=== PATIENT | male | born 1935 | race Caucasian/White ===

== ENCOUNTER 2020-05-10 08:33 | Inpatient (IN) | payer MEDICARE, OTHER ==
--- NOTE | 2020-05-10 10:11 | EDM.PDOC ---
ED HPI GENERAL MEDICAL PROBLEM - General Chief Complaint: Fever Stated Complaint: FEVER,WEAKNESS,STOMACHACHE Time Seen by Provider: 05/10/20 09:45 - History of Present Illness INITIAL COMMENTS - FREE TEXT/NARRATIVE: This is an 84-year-old male who presents with concerns of fever, fatigue, some muscle aches as well. His symptoms started approximately 5 days ago. He is primarily just been with fever and fatigue. No cough or shortness of breath. No abdominal pain. No diarrhea. He notes that he took a tick bite off of his left arm approximately 2 weeks ago, thought it was a normal wood tick, but did have some surrounding redness. He is visiting the area from [place]. He reports that he does not have any chronic medical problems besides for high blood pressure. He has no sick contacts and his and him have been relatively isolated. - Related Data Allergies Allergy/AdvReac Type Severity Reaction Status Date / Time No Known Allergies Allergy Verified 05/10/20 09:09 Home Meds: Home Meds Aspirin [Halfprin] 81 mg PO DAILY 05/10/20 [History] Finasteride [Proscar] 5 mg PO DAILY 05/10/20 [History] Losartan [Cozaar] 50 mg PO BID 05/10/20 [History] hydroCHLOROthiazide [Hydrochlorothiazide] 12.5 mg PO DAILY 05/10/20 [History] Past Medical History Cardiovascular History: Reports: Hypertension Respiratory History: Reports: None Gastrointestinal History: Reports: None Genitourinary History: Reports: BPH Musculoskeletal History: Reports: Fracture, Gout Neurological History: Reports: None Psychiatric History: Reports: None Endocrine/Metabolic History: Reports: None Hematologic History: Reports: None Immunologic History: Reports: None Oncologic (Cancer) History: Reports: None Dermatologic History: Reports: None - Infectious Disease History Infectious Disease History: Reports: Chicken Pox, Measles, Mumps - Past Surgical History HEENT Surgical History: Reports: Tonsillectomy Social & Family History - Tobacco Use Smoking Status *Q: Never Smoker - Caffeine Use Caffeine Use: Reports: Soda - Recreational Drug Use Recreational Drug Use: No ED ROS GENERAL - Review of Systems Review Of Systems: See Below Constitutional: Reports: Fever, Malaise HEENT: Reports: No Symptoms Respiratory: Reports: No Symptoms Cardiovascular: Reports: No Symptoms Endocrine: Reports: No Symptoms GI/Abdominal: Reports: No Symptoms : Denies: Dysuria Musculoskeletal: Reports: Muscle Pain Skin: Reports: No Symptoms Neurological: Reports: No Symptoms Psychiatric: Reports: No Symptoms Hematologic/Lymphatic: Reports: No Symptoms Immunologic: Reports: No Symptoms ED EXAM, SEPSIS - Physical Exam Exam: See Below Exam Limited By: No Limitations General Appearance: Alert, No Apparent Distress Ears: Normal External Exam Nose: Normal Inspection Throat/Mouth: Normal Inspection Head: Atraumatic, Normocephalic Neck: Normal Inspection Respiratory/Chest: Lungs Clear, Normal Breath Sounds Cardiovascular: Regular Rate, Rhythm GI/Abdominal Exam: Soft, Non-Tender Back: Normal Inspection Extremities: Normal Inspection Neurological: Alert, Oriented Psychiatric: Normal Affect, Normal Mood Skin: Warm, Dry Course - Vital Signs Last Recorded V/S: Last Vital Signs Temp 35.7 C L 05/10/20 09:06 Pulse 82 05/10/20 10:29 Resp 16 05/10/20 09:06 BP 95/66 05/10/20 10:29 Pulse Ox 96 05/10/20 10:29 - Orders/Labs/Meds Orders: Active Orders 24 hr Category Date Time Status Renal Comp [US] Stat Exams 05/10/20 10:36 Ordered CORONAVIRUS COVID-19 CHANELLE [MOLEC] Stat Lab 05/10/20 10:50 Ordered LYME, TOTAL AB TEST/REFLEX Stat Lab 05/10/20 09:40 Received UA W/MICROSCOPIC [URIN] Stat Lab 05/10/20 10:10 Ordered Doxycycline [Vibramycin] 100 mg Med 05/10/20 11:00 Active Sodium Chloride 0.9% [Normal Saline] 100 ml IV ONETIME Sodium Chloride 0.9% [Normal Saline] 1,000 ml Med 05/10/20 10:45 Active IV ASDIRECTED Medication Orders Sodium Chloride (Normal Saline) 1,000 mls @ 500 mls/hr IV ASDIRECTED CAROL Last Admin: 05/10/20 11:25 Dose: 500 mls/hr Documented by: PREILOR Doxycycline Hyclate 100 mg/ (Sodium Chloride) 100 mls @ 100 mls/hr IV ONETIME ONE Stop: 05/10/20 11:59 Last Admin: 05/10/20 11:27 Dose: 100 mls/hr Documented by: PREILOR Labs: Laboratory Tests 05/10/20 05/10/20 05/10/20 Range/Units 09:40 09:40 10:10 WBC 5.7 (4.5-11.0) K/uL RBC 5.41 (4.30-5.90) M/uL Hgb 14.5 (12.0-15.0) g/dL Hct 42.8 (40.0-54.0) % MCV 79 L (80-98) fL MCH 27 (27-31) pg MCHC 34 (32-36) % Plt Count 30 L (150-400) K/uL Sodium 133 L (140-148) mmol/L Potassium 4.1 (3.6-5.2) mmol/L Chloride 97 L (100-108) mmol/L Carbon Dioxide 22 (21-32) mmol/L Anion Gap 18.1 H (5.0-14.0) mmol/L BUN 81 H* (7-18) mg/dL Creatinine 5.0 H* (0.8-1.3) mg/dL Est Cr Clr Drug Dosing 11.19 mL/min Estimated GFR (MDRD) 11 L (>60) Glucose 169 H (74-106) mg/dL Calcium 7.9 L (8.5-10.1) mg/dL Total Bilirubin 0.8 (0.2-1.0) mg/dL AST 69 H (15-37) U/L ALT 120 H (12-78) U/L Alkaline Phosphatase 84 (46-116) U/L Creatine Kinase 83 (39-308) U/L Total Protein 8.0 (6.4-8.2) g/dL Albumin 3.0 L (3.4-5.0) g/dL Globulin 5.0 H (2.3-3.5) g/dL Albumin/Globulin Ratio 0.6 L (1.2-2.2) Meds: Medications Generic Name Dose Route Start Last Admin Trade Name Freq PRN Reason Stop Dose Admin Sodium Chloride 1,000 mls @ 500 mls/hr 05/10/20 10:45 05/10/20 11:25 Normal Saline IV 500 mls/hr ASDIRECTED CAROL Administration Doxycycline Hyclate 100 mg/ 100 mls @ 100 mls/hr 05/10/20 11:00 05/10/20 11:27 Sodium Chloride IV 05/10/20 11:59 100 mls/hr ONETIME ONE Administration Discontinued Medications Generic Name Dose Route Start Last Admin Trade Name Carl PRN Reason Stop Dose Admin Doxycycline Hyclate 100 mg/ 100 mls @ 100 mls/hr 05/10/20 10:38 Sodium Chloride IV 05/10/20 11:37 ONETIME ONE - Re-Assessments/Exams Free Text/Narrative Re-Assessment/Exam: This is an 84-year-old male presents with concerns of fever, malaise, some body aches. His exam is relatively benign, normal vitals and no focal findings. He does have a history of hypertension so his blood pressure here may be a bit on the low side. His labs are quite impressive, with a creatinine of 5 and a BUN of 80. He also was thrombocytopenic with an elevation in his liver function. Overall I think this does look like possible Lyme disease. At first the patient denied any history of renal disease, but now he is less certain and thinks he may have actually saw a flying teacher at some point. We are giving him a liter of fluid as well as a dose of doxycycline. I have ordered a renal ultrasound as well as a urinalysis for further work-up of his kidney failure. He will be admitted to the hospitalist for further work-up. 05/10/20 11:50 Departure - Departure Time of Disposition: 11:51 Disposition: Admitted As Inpatient 67 Clinical Impression: Thrombocytopenia, Elevated LFTs Tick bite Qualifiers: Encounter type: initial encounter Qualified Code(s): W57.XXXA - Bitten or stung by nonvenomous insect and other nonvenomous arthropods, initial encounter Renal failure Qualifiers: Renal failure chronicity: unspecified chronicity Qualified Code(s): N19 - Unspecified kidney failure - Discharge Information Referrals: PCP,None [Primary Care Provider] - Forms: ED Department Discharge Sepsis Event Note (ED) - Evaluation Sepsis Screening Result: Possible Sepsis Risk - Focused Exam Vital Signs: Vital Signs Temp Pulse Resp BP Pulse Ox 05/10/20 10:29 82 95/66 96 05/10/20 09:06 35.7 C L 93 16 107/62 98 05/10/20 09:02 35.7 C L 93 16 107/62 98 - My Orders Last 24 Hours: My Active Orders 05/10/20 09:40 LYME, TOTAL AB TEST/REFLEX Stat 05/10/20 10:10 UA W/MICROSCOPIC [URIN] Stat 05/10/20 10:36 Renal Comp [US] Stat 05/10/20 10:45 Sodium Chloride 0.9% [Normal Saline] 1,000 ml IV ASDIRECTED 05/10/20 10:50 CORONAVIRUS COVID-19 CHANELLE [MOLEC] Stat 05/10/20 11:00 Doxycycline [Vibramycin] 100 mg Sodium Chloride 0.9% [Normal Saline] 100 ml IV ONETIME - Assessment/Plan Last 24 Hours: My Active Orders 05/10/20 09:40 LYME, TOTAL AB TEST/REFLEX Stat 05/10/20 10:10 UA W/MICROSCOPIC [URIN] Stat 05/10/20 10:36 Renal Comp [US] Stat 05/10/20 10:45 Sodium Chloride 0.9% [Normal Saline] 1,000 ml IV ASDIRECTED 05/10/20 10:50 CORONAVIRUS COVID-19 CHANELLE [MOLEC] Stat 05/10/20 11:00 Doxycycline [Vibramycin] 100 mg Sodium Chloride 0.9% [Normal Saline] 100 ml IV ONETIME
[2020-05-10] MEDS ORDERED: Doxycycline 100 MG in Sodium Chloride 0.9% 100 ML IV ONE ×2 (10:38→11:00)
[2020-05-10] MEDS ORDERED: Sodium Chloride 0.9% 1,000 ML IV SCH ×2 (10:45→14:40)
--- NOTE | 2020-05-10 12:31 | US ---
Renal Comp CLINICAL HISTORY: Renal failure. COMPARISON: None. TECHNIQUE: Multiple sonographic images were obtained through the kidneys in the sagittal and transverse projections. Right kidney measures 12.8 x 6.4 x 6.2 cm. Cortical thickness is 1.3 cm. There is a normal pattern of blood flow. There is a 2.8 x 3.2 x 2.6 cm cyst in the upper pole as well as 1.5 x 2.6 x 1.9 cm cyst in the medial upper pole. There is a lower pole cyst measuring 2.1 x 2.3 x 2.0 cm.. Left kidney measures 12.5 x 6.0 x 5.5 cm. Cortical thickness is 1.2 cm. There is a lateral cyst in the upper pole measuring 1.4 x 1.2 x 1.3 cm.. Scans through the bladder show generalized bladder wall thickening. There is a lobulated basilar defect which is felt to be of very large prostate. Resting measures 5.9 x 6.3 x 7.0 cm there is a right ureteral jet identified. Full bladder volume was 1 37-mL. Post void volume was 29 mL. Incidental note of multiple gallstones. There is a right pleural effusion IMPRESSION: Multiple cysts both kidneys Generalized bladder wall hypertrophy with a very large prostate Right pleural effusion Cholelithiasis
--- NOTE | 2020-05-10 12:32 | CR ---
CHEST: 2 view CLINICAL HISTORY:Pleural effusion COMPARISON:None FINDINGS: The heart size, pulmonary vascularity and hilar structures are normal. No infiltrate effusion or pneumothorax is seen. There are atherosclerotic changes in the aorta. IMPRESSION: No acute cardiopulmonary process. Small right pleural effusion seen on current ultrasound is not obvious on the chest x-ray
--- NOTE | 2020-05-10 13:52 | PCM.HP.2 ---
H&P History of Present Illness - General Date of Service: 05/10/20 Admit Problem/Dx: Admission Diagnosis/Problem Admission Diagnosis/Problem Acute kidney injury Source of Information: Patient, Family, Provider History Limitations: Reports: No Limitations - History of Present Illness Initial Comments - Free Text/Narative: CC: I have no energy HPI: Jin presents to the emergency room today with fever, fatigue and weakness. He reports about 4 days of progressive symptoms. He has no energy and gets tired very quickly when he is trying to do anything. He has not had m uch of an appetite. He has been doing okay with fluids. He reports both subjective fevers and chills at home but does not have a thermometer. He has had some nausea but no vomiting or abdominal pain. He has not been coughing and has not had shortness of breath. No complaints of headache, muscle aches or joint aches. No skin rashes. He does report a tick bite on the left arm about 2 weeks ago but this was removed before it became engorged. He has traveled from [place] to [place]. No one else in the home is sick and he is not aware of any sick contacts. No change in bladder habits. Work-up in the emergency room revealed multiple laboratory abnormalities including a creatinine of 5 as well as platelets of 30,000. His white count is normal. He has a mild elevation of AST and ALT. The suspicion is for tickborne disease such as either Lyme disease or potentially anaplasmosis. With his acute kidney injury he will be admitted to the hospital for further management. - Related Data Allergies/Adverse Reactions: Allergies Allergy/AdvReac Type Severity Reaction Status Date / Time No Known Allergies Allergy Verified 05/10/20 09:09 Home Medications: Home Meds Aspirin [Halfprin] 81 mg PO DAILY 05/10/20 [History] Finasteride [Proscar] 5 mg PO DAILY 05/10/20 [History] Losartan [Cozaar] 50 mg PO BID 05/10/20 [History] hydroCHLOROthiazide [Hydrochlorothiazide] 12.5 mg PO DAILY 05/10/20 [History] Past Medical History Cardiovascular History: Reports: Hypertension Respiratory History: Reports: None Gastrointestinal History: Reports: None Genitourinary History: Reports: BPH Musculoskeletal History: Reports: Fracture, Gout Neurological History: Reports: None Psychiatric History: Reports: None Endocrine/Metabolic History: Reports: None Hematologic History: Reports: None Immunologic History: Reports: None Oncologic (Cancer) History: Reports: None Dermatologic History: Reports: None - Infectious Disease History Infectious Disease History: Reports: Chicken Pox, Measles, Mumps - Past Surgical History HEENT Surgical History: Reports: Tonsillectomy Social & Family History - Family History Cardiac: Denies: CAD - Tobacco Use Smoking Status *Q: Never Smoker - Caffeine Use Caffeine Use: Reports: Soda - Alcohol Use Alcohol Use History: No - Recreational Drug Use Recreational Drug Use: No H&P Review of Systems - Review of Systems: Review Of Systems: See Below Free Text/Narrative: A complete 12 point review of systems was obtained. Pertinent positives and negatives are noted in the history of present illness. All other systems were reviewed and were negative except as noted. Exam - Exam Exam: See Below - Vital Signs Vital Signs: Last Vital Signs Temp 35.7 C L 05/10/20 09:06 Pulse 82 05/10/20 10:29 Resp 16 05/10/20 09:06 BP 95/66 05/10/20 10:29 Pulse Ox 96 05/10/20 10:29 Weight: 88.451 kg - Exam Quality Assessment: No: Supplemental Oxygen General: Alert, Oriented, Cooperative. No: Mild Distress HEENT: Conjunctiva Clear. No: Mucosa Moist & [place] (dry), Scleral Icterus Neck: Supple, Trachea Midline. No: Lymphadenopathy Lungs: Clear to Auscultation, Normal Respiratory Effort Cardiovascular: Regular Rate, Regular Rhythm. No: Systolic Murmur GI/Abdominal Exam: Normal Bowel Sounds, Soft, Non-Tender, No Distention Back Exam: Normal Inspection, Full Range of Motion Extremities: No Pedal Edema. No: Increased Warmth Skin: Warm, Dry, Other (probable tick bite area left medial arm proximal to the elbow and left lateral posterior thigh proximal to the knee ) Neuro Extensive - Mental Status: Alert, Oriented x3 Neuro Extensive - Motor, Sensory, Reflexes: No: Dysarthria, Abnormal Motor, Tremor Psychiatric: Alert, Normal Affect - Patient Data Lab Results Last 24 hrs: Laboratory Results - last 24 hr 05/10/20 05/10/20 05/10/20 Range/Units 09:40 09:40 10:10 WBC 5.7 (4.5-11.0) K/uL RBC 5.41 (4.30-5.90) M/uL Hgb 14.5 (12.0-15.0) g/dL Hct 42.8 (40.0-54.0) % MCV 79 L (80-98) fL MCH 27 (27-31) pg MCHC 34 (32-36) % Plt Count 30 L (150-400) K/uL Sodium 133 L (140-148) mmol/L Potassium 4.1 (3.6-5.2) mmol/L Chloride 97 L (100-108) mmol/L Carbon Dioxide 22 (21-32) mmol/L Anion Gap 18.1 H (5.0-14.0) mmol/L BUN 81 H* (7-18) mg/dL Creatinine 5.0 H* (0.8-1.3) mg/dL Est Cr Clr Drug Dosing 11.19 mL/min Estimated GFR (MDRD) 11 L (>60) Glucose 169 H (74-106) mg/dL Calcium 7.9 L (8.5-10.1) mg/dL Total Bilirubin 0.8 (0.2-1.0) mg/dL AST 69 H (15-37) U/L ALT 120 H (12-78) U/L Alkaline Phosphatase 84 (46-116) U/L Creatine Kinase 83 (39-308) U/L Total Protein 8.0 (6.4-8.2) g/dL Albumin 3.0 L (3.4-5.0) g/dL Globulin 5.0 H (2.3-3.5) g/dL Albumin/Globulin Ratio 0.6 L (1.2-2.2) SARS Virus RNA (PCR) (NEGATIVE) 05/10/20 Range/Units 11:00 WBC (4.5-11.0) K/uL RBC (4.30-5.90) M/uL Hgb (12.0-15.0) g/dL Hct (40.0-54.0) % MCV (80-98) fL MCH (27-31) pg MCHC (32-36) % Plt Count (150-400) K/uL Sodium (140-148) mmol/L Potassium (3.6-5.2) mmol/L Chloride (100-108) mmol/L Carbon Dioxide (21-32) mmol/L Anion Gap (5.0-14.0) mmol/L BUN (7-18) mg/dL Creatinine (0.8-1.3) mg/dL Est Cr Clr Drug Dosing mL/min Estimated GFR (MDRD) (>60) Glucose (74-106) mg/dL Calcium (8.5-10.1) mg/dL Total Bilirubin (0.2-1.0) mg/dL AST (15-37) U/L ALT (12-78) U/L Alkaline Phosphatase (46-116) U/L Creatine Kinase (39-308) U/L Total Protein (6.4-8.2) g/dL Albumin (3.4-5.0) g/dL Globulin (2.3-3.5) g/dL Albumin/Globulin Ratio (1.2-2.2) SARS Virus RNA (PCR) Negative (NEGATIVE) Result Diagrams: 05/10/20 09:40 05/10/20 09:40 Imaging Impressions Last 24 hrs: CXR-images personally reviewed-lungs are clear with no mass, infiltrate or effusion. Renal US-multiple renal cysts bilaterally. No hydro. Prostate enlarged. Sepsis Event Note - Evaluation Sepsis Screening Result: Possible Sepsis Risk - Focused Exam Vital Signs: Vital Signs Temp Pulse Resp BP Pulse Ox 05/10/20 10:29 82 95/66 96 05/10/20 09:06 35.7 C L 93 16 107/62 98 05/10/20 09:02 35.7 C L 93 16 107/62 98 Date Exam was Performed: 05/10/20 Time Exam was Performed: 16:38 *Q Meaningful Use (ADM) - VTE Risk Assess *Q Each Risk Factor Represents 1 Point: None Total Score 1 Point Risk Factors: 0 Each Risk Factor Represents 2 Points: None Total Score 2 Point Risk Factors: 0 Each Risk Factor Represents 3 Points: Age 75 Years or Greater Total Score 3 Point Risk Factors: 3 Each Risk Factor Represents 5 Points: None Total Score 5 Point Risk Factors: 0 Venous Thromboembolism Risk Factor Score *Q: 3 - Problem List (1) Acute kidney injury SNOMED Code(s): 36492265, 43134546 ICD Code: N17.9 - ACUTE KIDNEY FAILURE, UNSPECIFIED Status: Acute Current Visit: Yes (2) Anaplasmosis SNOMED Code(s): 769597372 ICD Code: A77.49 - OTHER EHRLICHIOSIS Status: Suspected Current Visit: Yes (3) BPH loc w urin obs/LUTS SNOMED Code(s): 388949118 ICD Code: N40.1 - BENIGN PROSTATIC HYPERPLASIA WITH LOWER URINARY TRACT SYMP Status: Chronic Current Visit: Yes Problem List Initiated/Reviewed/Updated: Yes Orders Last 24hrs: Active Orders 24 hr Category Date Time Status Patient Status Manage Transfer [TRANSFER] Routine ADT 05/10/20 13:41 Ordered C-REACTIVE PROTEIN [CHEM] Routine Lab 05/10/20 13:39 Ordered HUMAN GRANULOCYTIC SAMANTHA-HGE Routine Lab 05/10/20 13:39 Ordered LYME, TOTAL AB TEST/REFLEX Stat Lab 05/10/20 09:40 Received UA W/MICROSCOPIC [URIN] Stat Lab 05/10/20 10:10 Ordered Sodium Chloride 0.9% [Normal Saline] 1,000 ml Med 05/10/20 10:45 Active IV ASDIRECTED Resuscitation Status Routine Resus Stat 05/10/20 13:42 Ordered Medication Orders Sodium Chloride (Normal Saline) 1,000 mls @ 500 mls/hr IV ASDIRECTED CAROL Last Admin: 05/10/20 11:25 Dose: 500 mls/hr Documented by: PREILOR Assessment/Plan Comment:: ASSESSMENT AND PLAN - Acute kidney injury-Baseline creatinine is unknown but creatinine is currently 5. I suspect this is related to significant dehydration. I would anticipate that his kidney function will return to normal with some IV fluids. Renal ultrasound did not show evidence for obstruction but did show multiple renal cysts. COVID testing was negative. -Aggressive IV fluids -Treatment of presumed tickborne illness -Repeat labs in the morning Suspected tickborne illness-he did have a recent exposure and has 2 potential bite spots on his body, one on the left arm and one on the left leg. Sounds more like an acute Lyme presentation but anaplasmosis could be considered. No respiratory symptoms. No urinary symptoms. -Doxycycline -Follow-up serology for Lyme and anaplasmosis BPH with lower urinary tract symptoms-continue finasteride Maintenance issues - - DVT prophylaxis -mechanical with thrombocytopenia - GI prophylaxis -not indicated - Nutrition -regular - Nunn catheter -not indicated CODE STATUS -full code Admission justification -this patient will be admitted for inpatient services and is medically appropriate meeting medical necessity for inpatient admission as outlined in my documentation. I reasonably expect the patient will require inpatient services that span a period time over 2 midnights. I reasonably expect this patient to be discharged or transferred within 96 hours after admission to the [facility]. Disposition -I would anticipate discharge home Primary care physician -primary care is provided through his home town in [place] Wilfrido Ramos M.D. - Mortality Measure Prognosis:: Good
[2020-05-10] MEDS ORDERED: Acetaminophen 325 MG Tab PO PRN (14:40)
[2020-05-10] MEDS ORDERED: Ondansetron 4 MG/2 ML SDV IV PRN (14:40)
[2020-05-10] MEDS ORDERED: Melatonin 3 MG Tab PO PRN (14:40)
[2020-05-10] MEDS ORDERED: LORazepam 2 MG/ML SDV IVPUSH PRN (14:40)
[2020-05-10] MEDS ORDERED: Magnesium Hydroxide 400 MG/5 ML Susp 30 ML Cup PO PRN (14:40)
[2020-05-10] MEDS ORDERED: Ondansetron 4 MG Tab.DIS PO PRN (14:40)
[2020-05-10] MEDS: Lactobacillus Rhamnosus GG (Probiotic) Cap PO SCH (20:27)
[2020-05-10] MEDS: Doxycycline 100 MG in Sodium Chloride 0.9% 100 ML IV SCH (20:27)
[2020-05-11] MEDS: Sodium Chloride 0.9% 1,000 ML IV SCH (02:54)
[2020-05-11] MEDS: Lactobacillus Rhamnosus GG (Probiotic) Cap PO SCH ×2 (08:10→20:49)
[2020-05-11] MEDS: Aspirin 81 MG Tab.EC PO SCH (08:10)
[2020-05-11] MEDS: Finasteride 5 MG Tab PO SCH (08:11)
[2020-05-11] MEDS: Doxycycline 100 MG in Sodium Chloride 0.9% 100 ML IV SCH ×2 (08:15→20:49)
--- NOTE | 2020-05-11 13:53 | PCM.PN ---
- General Info Date of Service: 05/11/20 Subjective Update: There were no acute events overnight. The patient reports that he is feeling better today. His appetite is back. His strength is returning. He had only low-grade temperature elevations overnight. No myalgias or headache. No nausea. Platelet level is lower today at 13,000. Creatinine is stable and remains significantly elevated at 5. Functional Status: Reports: Pain Controlled, Tolerating Diet - Review of Systems General: Denies: Fever Gastrointestinal: Denies: Nausea - Patient Data Vitals - Most Recent: Last Vital Signs Temp 36.5 C 05/11/20 10:33 Pulse 78 05/11/20 10:33 Resp 18 05/11/20 10:33 BP 110/58 L 05/11/20 10:33 Pulse Ox 98 05/11/20 10:33 Weight - Most Recent: 88.451 kg I&O - Last 24 Hours: Intake & Output 05/10/20 05/11/20 05/11/20 22:59 06:59 14:59 Intake Total 735 3017 Output Total 600 300 Balance 135 3017 -300 Lab Results Last 24 Hours: Laboratory Results - last 24 hr 05/10/20 05/10/20 05/11/20 Range/Units 13:39 18:01 04:00 WBC 6.6 (4.5-11.0) K/uL RBC 4.67 (4.30-5.90) M/uL Hgb 12.5 D (12.0-15.0) g/dL Hct 37.4 L (40.0-54.0) % MCV 80 (80-98) fL MCH 27 (27-31) pg MCHC 33 (32-36) % Plt Count 13 L* (150-400) K/uL Neut % (Auto) 45 (36-66) % Lymph % (Auto) 35 (24-44) % [place] % (Auto) 15 H (2-6) % Eos % (Auto) 2 (2-4) % Baso % (Auto) 4 H (0-1) % Sodium (140-148) mmol/L Potassium (3.6-5.2) mmol/L Chloride (100-108) mmol/L Carbon Dioxide (21-32) mmol/L Anion Gap (5.0-14.0) mmol/L BUN (7-18) mg/dL Creatinine (0.8-1.3) mg/dL Est Cr Clr Drug Dosing mL/min Estimated GFR (MDRD) (>60) Glucose (74-106) mg/dL Calcium (8.5-10.1) mg/dL Magnesium (1.8-2.4) mg/dL Total Bilirubin (0.2-1.0) mg/dL AST (15-37) U/L ALT (12-78) U/L Alkaline Phosphatase (46-116) U/L C-Reactive Protein 10.31 H (0.0-0.3) mg/dL Total Protein (6.4-8.2) g/dL Albumin (3.4-5.0) g/dL Globulin (2.3-3.5) g/dL Albumin/Globulin Ratio (1.2-2.2) Urine Color Yellow (YELLOW) Urine Appearance Clear (CLEAR) Urine pH 5.5 (5.0-8.0) Ur Specific [place] 1.020 (1.008-1.030) Urine Protein 100 H (NEGATIVE) mg/dL Urine Glucose (UA) Negative (NEGATIVE) mg/dL Urine Ketones Negative (NEGATIVE) mg/dL Urine Occult Blood Moderate H (NEGATIVE) Urine Nitrite Negative (NEGATIVE) Urine Bilirubin Negative (NEGATIVE) Urine Urobilinogen 0.2 (0.2-1.0) EU/dL Ur Leukocyte Esterase Negative (NEGATIVE) Urine RBC 10-20 H (0-5) Urine WBC 0-5 (0-5) Ur Epithelial Cells Few Amorphous Sediment Rare Urine Bacteria Many Urine Mucus Few /01/26 Range/Units 04:00 WBC (4.5-11.0) K/uL RBC (4.30-5.90) M/uL Hgb (12.0-15.0) g/dL Hct (40.0-54.0) % MCV (80-98) fL MCH (27-31) pg MCHC (32-36) % Plt Count (150-400) K/uL Neut % (Auto) (36-66) % Lymph % (Auto) (24-44) % [place] % (Auto) (2-6) % Eos % (Auto) (2-4) % Baso % (Auto) (0-1) % Sodium 137 L (140-148) mmol/L Potassium 3.9 (3.6-5.2) mmol/L Chloride 106 (100-108) mmol/L Carbon Dioxide 20 L (21-32) mmol/L Anion Gap 14.9 H (5.0-14.0) mmol/L BUN 93 H* (7-18) mg/dL Creatinine 5.0 H* (0.8-1.3) mg/dL Est Cr Clr Drug Dosing 11.19 mL/min Estimated GFR (MDRD) 11 L (>60) Glucose 134 H (74-106) mg/dL Calcium 7.3 L (8.5-10.1) mg/dL Magnesium 2.3 (1.8-2.4) mg/dL Total Bilirubin 0.5 (0.2-1.0) mg/dL AST 39 H (15-37) U/L ALT 84 H (12-78) U/L Alkaline Phosphatase 66 (46-116) U/L C-Reactive Protein (0.0-0.3) mg/dL Total Protein 6.2 L (6.4-8.2) g/dL Albumin 2.3 L (3.4-5.0) g/dL Globulin 3.9 H (2.3-3.5) g/dL Albumin/Globulin Ratio 0.6 L (1.2-2.2) Urine Color (YELLOW) Urine Appearance (CLEAR) Urine pH (5.0-8.0) Ur Specific [place] (1.008-1.030) Urine Protein (NEGATIVE) mg/dL Urine Glucose (UA) (NEGATIVE) mg/dL Urine Ketones (NEGATIVE) mg/dL Urine Occult Blood (NEGATIVE) Urine Nitrite (NEGATIVE) Urine Bilirubin (NEGATIVE) Urine Urobilinogen (0.2-1.0) EU/dL Ur Leukocyte Esterase (NEGATIVE) Urine RBC (0-5) Urine WBC (0-5) Ur Epithelial Cells Amorphous Sediment Urine Bacteria Urine Mucus Med Orders - Current: Current Medications Acetaminophen (Tylenol) 650 mg PO Q4H PRN PRN Reason: Pain (Mild 1-3)/fever Aspirin (Halfprin) 81 mg PO DAILY [facility] Last Admin: 05/11/20 08:10 Dose: 81 mg Documented by: Finasteride (Proscar) 5 mg PO DAILY [facility] Last Admin: 05/11/20 08:11 Dose: 5 mg Documented by: Doxycycline Hyclate 100 mg/ (Sodium Chloride) 100 mls @ 100 mls/hr IV Q12H [facility] Last Admin: 05/11/20 08:15 Dose: 100 mls/hr Documented by: Sodium Chloride (Normal Saline) 1,000 mls @ 50 mls/hr IV ASDIRECTED [facility] Last Admin: 05/11/20 02:54 Dose: 125 mls/hr Documented by: Lactobacillus Rhamnosus (Culturelle) 1 cap PO BID [facility] Last Admin: 05/11/20 08:10 Dose: 1 cap Documented by: Lorazepam (Ativan) 0.5 mg IVPUSH Q4H PRN PRN Reason: Nausea/Vomiting Magnesium Hydroxide (Milk Of Magnesia) 30 ml PO Q12H PRN PRN Reason: Constipation Melatonin (Melatonin) 9 mg PO BEDTIME PRN PRN Reason: sleep Ondansetron HCl (Zofran) 4 mg IV Q6H PRN PRN Reason: Nausea/Vomiting Ondansetron HCl (Zofran Odt) 4 mg PO Q6H PRN PRN Reason: Nausea able to take PO Senna/Docusate Sodium (Senna Plus) 1 tab PO BID PRN PRN Reason: Constipation Discontinued Medications Sodium Chloride (Normal Saline) 1,000 mls @ 500 mls/hr IV ASDIRECTED [facility] Last Admin: 05/10/20 11:25 Dose: 500 mls/hr Documented by: Doxycycline Hyclate 100 mg/ (Sodium Chloride) 100 mls @ 100 mls/hr IV ONETIME ONE Stop: 05/10/20 11:37 Last Admin: 05/10/20 12:18 Dose: Not Given Documented by: Doxycycline Hyclate 100 mg/ (Sodium Chloride) 100 mls @ 100 mls/hr IV ONETIME ONE Stop: 05/10/20 11:59 Last Admin: 05/10/20 11:27 Dose: 100 mls/hr Documented by: Sodium Chloride (Normal Saline) 1,000 mls @ 500 mls/hr IV .BOLUS [facility] Last Admin: 05/10/20 15:09 Dose: 500 mls/hr Documented by: - Exam Quality Assessment: No: Supplemental Oxygen General: Alert, Oriented, Cooperative, No Acute Distress Lungs: Normal Respiratory Effort Cardiovascular: Regular Rate, Regular Rhythm GI/Abdominal Exam: Soft, No Distention Extremities: No Pedal Edema Psy/Mental Status: Alert, Normal Affect Sepsis Event Note - Evaluation Sepsis Screening Result: No Definite Risk - Focused Exam Vital Signs: Vital Signs Temp Pulse Resp BP Pulse Ox 05/11/20 10:33 36.5 C 78 18 110/58 L 98 05/11/20 07:50 36.1 C 71 18 112/67 97 05/11/20 03:00 37.7 C 77 18 107/54 L 96 Date Exam was Performed: 05/11/20 Time Exam was Performed: 16:19 - Problem List & Annotations (1) Acute kidney injury SNOMED Code(s): 99585057, 69076809 Code(s): N17.9 - ACUTE KIDNEY FAILURE, UNSPECIFIED Status: Acute Current Visit: Yes (2) Anaplasmosis SNOMED Code(s): 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 Code(s): A77.49 - OTHER EHRLICHIOSIS Status: Suspected Current Visit: Yes (3) BPH loc w urin obs/LUTS SNOMED Code(s): 309347129 Code(s): N40.1 - BENIGN PROSTATIC HYPERPLASIA WITH LOWER URINARY TRACT SYMP Status: Chronic Current Visit: Yes - Problem List Review Problem List Initiated/Reviewed/Updated: Yes - My Orders Last 24 Hours: My Active Orders 05/10/20 13:42 Resuscitation Status Routine 05/10/20 13:55 HUMAN GRANULOCYTIC SAMANTHA-HGE Routine 05/10/20 14:40 Acetaminophen [Tylenol] 650 mg PO Q4H PRN Docusate Sodium/Sennosides [Senna Plus] 1 tab PO BID PRN LORazepam [Ativan] 0.5 mg IVPUSH Q4H PRN Magnesium Hydroxide [Milk of Magnesia] 30 ml PO Q12H PRN Melatonin 9 mg PO BEDTIME PRN Ondansetron [Zofran ODT] 4 mg PO Q6H PRN Ondansetron [Zofran] 4 mg IV Q6H PRN Sodium Chloride 0.9% [Normal Saline] 1,000 ml IV ASDIRECTED 05/10/20 14:40 Patient Status [ADT] Routine Antiembolic Devices [RC] .Routine Intake and Output [RC] QSHIFT Notify Provider Vital Signs [RC] ASDIRECTED Oxygen Therapy [RC] PRN Up With Assistance [RC] ASDIRECTED VTE/DVT Education [RC] Per Unit Routine Vital Signs [RC] Q4H Sequential Compression Device [OM.PC] Routine 05/10/20 Dinner Regular Diet [DIET] 05/10/20 21:00 Doxycycline [Vibramycin] 100 mg Sodium Chloride 0.9% [Normal Saline] 100 ml IV Q12H Lactobacillus Rhamnosus GG [Culturelle] 1 cap PO BID 05/10/20 23:01 CULTURE URINE [RM] Routine 05/11/20 07:00 PT Evaluation and Treatment [CONS] Routine 05/11/20 09:00 Aspirin [Halfprin] 81 mg PO DAILY Finasteride [Proscar] 5 mg PO DAILY 05/12/20 05:00 BASIC METABOLIC PANEL,BMP [CHEM] Timed CBC W/O DIFF,HEMOGRAM [HEME] Timed (1) - Plan Plan:: ASSESSMENT AND PLAN - Acute kidney injury-creatinine stable at 5. Making good urine. Hemodynamically stable. No obvious indication for dialysis at this point. I would anticipate that his kidney function should start to improve over the next 24 hours as far as the blood testing is concerned. -Continue gentle fluids -Treatment of presumed tickborne illness -Repeat labs in the morning Suspected tickborne illness-he did have a recent exposure and has 2 potential bite spots on his body, one on the left arm and one on the left leg. Labs and symptoms fit with either Lyme and/or anaplasmosis. Getting better with treatment so far. No other obvious source for infection. -Doxycycline -Follow-up serology for Lyme and anaplasmosis BPH with lower urinary tract symptoms-continue finasteride Maintenance issues - - DVT prophylaxis -mechanical with thrombocytopenia - GI prophylaxis -not indicated - Nutrition -regular Disposition -I would anticipate discharge home Primary care physician -primary care is provided through his home town in [place] Wilfrido Ramos M.D.
[2020-05-12] MEDS: Sodium Chloride 0.9% 1,000 ML IV SCH (02:27)
[2020-05-12] MEDS: Aspirin 81 MG Tab.EC PO SCH (08:09)
[2020-05-12] MEDS: Lactobacillus Rhamnosus GG (Probiotic) Cap PO SCH (08:09)
[2020-05-12] MEDS: Finasteride 5 MG Tab PO SCH (08:09)
[2020-05-12] MEDS: Doxycycline 100 MG in Sodium Chloride 0.9% 100 ML IV SCH (08:12)
--- NOTE | 2020-05-12 10:35 | PCM.DCSUM1 ---
Discharge Summary - Hospital Course Brief History: 84-year-old male with history of BPH and essential hypertension who presented with fever, weakness and fatigue. He was admitted for management of acute kidney injury with a creatinine of 5 and suspected anaplasmosis. 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 PT Reason for Consult: Strengthening This query below is only for informational purposes and is not editable. Hospital Course: [place] presented to the emergency room with weakness, fatigue and fever. Work-up in the emergency room revealed a creatinine of 5 as well as concern for anaplasmosis with thrombocytopenia and low normal white count with mild elevation of liver numbers. He was started on doxycycline and IV fluids. He was admitted to the hospital for management mostly of the acute kidney injury rather than unstable infection. He received hydration overnight and into the day after admission. He was on IV antibiotics. He continued to have good urine output but the next morning his kidney function remained significantly decreased and his creatinine was stable at 5. He was feeling better and did not have any fevers. We continued the IV fluids into the afternoon and then saline locked him. We continued the IV doxycycline. By the morning of discharge he is feeling much better. His creatinine is down to 3.7. He is continued to have good urine output. He has not had any fevers. I am suspicious enough this is a tickborne disease that I am going to recommend that he complete a course of antibiotics for Lyme/anaplasmosis. He will be on doxycycline for a total of 3 weeks. He is going to be returning to the hospital in 3 days time for repeat BMP and I will discuss the results of him. - Patient Instructions Diet: Regular Diet as Tolerated Activity: As Tolerated Driving: May Drive Today Showering/Bathing: May Shower Notify Provider of: Fever, Increased Pain Other/Special Instructions: 1. You were in the hospital for management of acute kidney injury caused by a tickborne infection that I suspect is anaplasmosis. Your condition has been improving with IV fluids and with antibiotic therapy. Please continue to push fluids after you get home with a goal of drinking 64 ounces of fluid per day. I recommend that you take doxycycline 100 mg twice daily for 19 more days with your first dose outside of the hospital being due tonight. This antibiotic will treat the suspected tickborne infection. This antibiotic can upset the stomach so you should take it with food. This antibiotic can also make your skin more sensitive to the sunlight so you should wear protective clothing or high SPF sunscreen when you are outside. 2. Please return to the hospital and check in at the emergency room desk on May 15. Please register for a lab only draw. You may leave after your blood is collected and I will contact you with results later in the day. We are planning to recheck your kidney function to ensure that it has continued to improve. 3. Continue your usual home medications as previously prescribed. - Discharge Plan *PRESCRIPTION DRUG MONITORING PROGRAM REVIEWED*: Not Applicable *COPY OF PRESCRIPTION DRUG MONITORING REPORT IN PATIENT EVER: Not Applicable Prescriptions/Med Rec: Doxycycline Hyclate 100 mg PO BID #38 tablet Home Medications: Home Meds Aspirin [Halfprin] 81 mg PO DAILY 05/10/20 [History] Finasteride [Proscar] 5 mg PO DAILY 05/10/20 [History] Losartan [Cozaar] 50 mg PO BID 05/10/20 [History] hydroCHLOROthiazide [Hydrochlorothiazide] 12.5 mg PO DAILY 05/10/20 [History] Doxycycline Hyclate 100 mg PO BID #38 tablet 05/12/20 [Rx] Oxygen Therapy Mode: Room Air Patient Handouts: Ehrlichiosis and Anaplasmosis, [id number], Doxycycline tablets or capsules Referrals: PCP,None [Primary Care Provider] - (f/u as needed if your symptoms do not continue to get better or if they get worse) - Discharge Summary/Plan Comment DC Time >30 min.: No - Patient Data Vitals - Most Recent: Last Vital Signs Temp 36.7 C 05/12/20 07:33 Pulse 74 05/12/20 07:33 Resp 18 05/12/20 07:33 BP 133/70 05/12/20 07:33 Pulse Ox 98 05/12/20 07:33 Weight - Most Recent: 88.451 kg I&O - Last 24 hours: Intake & Output 05/11/20 05/12/20 05/12/20 22:59 06:59 14:59 Intake Total 1076 400 Balance 1076 400 Lab Results - Last 24 hrs: Laboratory Results - last 24 hr 05/12/20 05/12/20 Range/Units 04:05 04:05 WBC 8.9 (4.5-11.0) K/uL RBC 4.83 (4.30-5.90) M/uL Hgb 12.8 (12.0-15.0) g/dL Hct 38.6 L (40.0-54.0) % MCV 80 (80-98) fL MCH 27 (27-31) pg MCHC 33 (32-36) % Plt Count 16 L* (150-400) K/uL Sodium 137 L (140-148) mmol/L Potassium 3.9 (3.6-5.2) mmol/L Chloride 109 H (100-108) mmol/L Carbon Dioxide 19 L (21-32) mmol/L Anion Gap 12.9 (5.0-14.0) mmol/L BUN 79 H* (7-18) mg/dL Creatinine 3.7 H* (0.8-1.3) mg/dL Est Cr Clr Drug Dosing 15.08 mL/min Estimated GFR (MDRD) 16 L (>60) Glucose 155 H (74-106) mg/dL Calcium 7.8 L (8.5-10.1) mg/dL [facility] Results - Last 24 hrs: Microbiology 05/10/20 23:01 Urine Culture - Preliminary Urine, Clean Catch NO GROWTH AFTER 1 DAY Med Orders - Current: Current Medications Acetaminophen (Tylenol) 650 mg PO Q4H PRN PRN Reason: Pain (Mild 1-3)/fever Aspirin (Halfprin) 81 mg PO DAILY [facility] Last Admin: 05/12/20 08:09 Dose: 81 mg Documented by: Finasteride (Proscar) 5 mg PO DAILY [facility] Last Admin: 05/12/20 08:09 Dose: 5 mg Documented by: Doxycycline Hyclate 100 mg/ (Sodium Chloride) 100 mls @ 100 mls/hr IV Q12H [facility] Last Admin: 05/12/20 08:12 Dose: 100 mls/hr Documented by: Sodium Chloride (Normal Saline) 1,000 mls @ 50 mls/hr IV ASDIRECTED [facility] Last Admin: 05/12/20 02:27 Dose: 125 mls/hr Documented by: Lactobacillus Rhamnosus (Culturelle) 1 cap PO BID [facility] Last Admin: 05/12/20 08:09 Dose: 1 cap Documented by: Lorazepam (Ativan) 0.5 mg IVPUSH Q4H PRN PRN Reason: Nausea/Vomiting Magnesium Hydroxide (Milk Of Magnesia) 30 ml PO Q12H PRN PRN Reason: Constipation Melatonin (Melatonin) 9 mg PO BEDTIME PRN PRN Reason: sleep Ondansetron HCl (Zofran) 4 mg IV Q6H PRN PRN Reason: Nausea/Vomiting Ondansetron HCl (Zofran Odt) 4 mg PO Q6H PRN PRN Reason: Nausea able to take PO Senna/Docusate Sodium (Senna Plus) 1 tab PO BID PRN PRN Reason: Constipation Discontinued Medications Sodium Chloride (Normal Saline) 1,000 mls @ 500 mls/hr IV ASDIRECTED [facility] Last Admin: 05/10/20 11:25 Dose: 500 mls/hr Documented by: Doxycycline Hyclate 100 mg/ (Sodium Chloride) 100 mls @ 100 mls/hr IV ONETIME ONE Stop: 05/10/20 11:37 Last Admin: 05/10/20 12:18 Dose: Not Given Documented by: Doxycycline Hyclate 100 mg/ (Sodium Chloride) 100 mls @ 100 mls/hr IV ONETIME ONE Stop: 05/10/20 11:59 Last Admin: 05/10/20 11:27 Dose: 100 mls/hr Documented by: Sodium Chloride (Normal Saline) 1,000 mls @ 500 mls/hr IV .BOLUS [facility] Last Admin: 05/10/20 15:09 Dose: 500 mls/hr Documented by:
[2020-05-14 13:10] LABS: LYME IGG/IGM AB <0.91 ISR (0.00-0.90)
== END 2020-05-12 12:00 | disposition home or self-care (01) | DRG 683 ==
LOC: JP.ED 08:33 → JP.MS 13:41
PROVIDERS: ADMIT Internal Medicine; ATTEND Internal Medicine
DX: D69.6 Thrombocytopenia, unspecified (principal); R79.89 Other specified abnormal findings of blood chemistry; W57.XXXD Bitten or stung by nonvenomous insect and other nonvenomous arthropods, subsequent encounter; N19 Unspecified kidney failure; N17.9 Acute kidney failure, unspecified; N40.0 Benign prostatic hyperplasia without lower urinary tract symptoms; A77.49 Other ehrlichiosis; N40.1 Benign prostatic hyperplasia with lower urinary tract symptoms; I10 Essential (primary) hypertension; M10.9 Gout, unspecified; Z20.828 Contact with and (suspected) exposure to other viral communicable diseases; Z90.89 Acquired absence of other organs; Z79.82 Long term (current) use of aspirin; Z79.899 Other long term (current) drug therapy
CPT/HCPCS: 71046 ×2; 76770 ×2; 80053; 82550; 85027; 86140; J3490; J7030; J7050; U0002; 36415; 80048; 81001; 83735; 85025; 86618; 86666; 87086; 96365; 97161-GP; 97530-GP; 99285-25; A9270-GY

== ENCOUNTER 2025-07-06 16:17 | Emergency (ER) | payer MEDICARE ==
[2025-07-06 16:47] LABS: APPEARANCE,URINE CLEAR (CLEAR); GLUCOSE,URINE NEGATIVE (NEGATIVE); OCCULT BLOOD,URINE SMALL (NEGATIVE)
[2025-07-06 16:54] LABS: SQUAMOUS EPITHELIAL CELLS,UR RARE /HPF; UROTHELIAL CELLS,URINE NOT SEEN /HPF
[2025-07-06 16:56] LABS: PLATELET COUNT,PLT 61 K/uL (130-375); RED BLOOD CELL COUNT 4.50 M/uL (4.14-5.76); WHITE BLOOD CELL COUNT,WBC 7.4 K/uL (3.2-11.0)
[2025-07-06 17:19] LABS: BAND ABSOLUTE MAN 0.15 K/uL; BAND PERCENT MAN 2 % (5-11); LACTIC ACID 1.3 mmol/L (0.4-2.0); LYMPHOCYTES ABSOLUTE MAN 2.15 K/uL (0.8-3.3); LYMPHOCYTES PERCENT MAN 29 % (24-44); MONOCYTES ABSOLUTE MAN 0.30 K/uL (0.20-0.90); MONOCYTES PERCENT MAN 4 % (2-6); NEUTROPHILS ABSOLUTE MAN 4.81 K/uL (1.0-7.6); SEG NEUTROPHILS PERCENT MAN 65 % (36-66)
[2025-07-06 17:20] LABS: ATYPICAL LYMPHOCYTES MODERATE
[2025-07-06 17:28] LABS: A/G RATIO 0.5 (1.2-2.2); ALANINE AMINOTRANSFERASE,ALT 37 U/L (12-78); ASPARTATE AMNIOTRANSFERASE,AST 28 U/L (15-37); BILIRUBIN TOTAL 1.2 mg/dL (0.2-1.0); CARBON DIOXIDE,CO2 22 mmol/L (21-32); CHLORIDE,CL 101 mmol/L (100-108); CREATININE 2.6 mg/dL (0.8-1.3); ESTIMATED GFR 23 mL/min (>60); GLUCOSE RANDOM 187 mg/dL (74-106); POTASSIUM,K 4.8 mmol/L (3.6-5.2); PROTEIN TOTAL,TP 8.3 g/dL (6.4-8.2); SODIUM,NA 134 mmol/L (140-148)
[2025-07-06 17:34] LABS: BLOOD UREA NITROGEN,BUN 84 mg/dL (7-18)
[2025-07-06] MEDS: Sodium Chloride 0.9% 10 ML Syringe FLUSH PRN (17:37)
[2025-07-10 02:26] LABS: ANAPLASMA PHAGOCYTOPHILUM PCR Not Detected; BABESIA MICROTI BY PCR Detected; EHRLICHIA CHAFFEENSIS BY PCR Not Detected; EHRLICHIA EWINGII/CANIS BY PCR Not Detected; EHRLICHIA MURIS-LIKE BY PCR Not Detected
[2025-07-10 14:37] LABS: B. BURGDORFERI IGG IMMUNOBLOT Negative (Negative); B. BURGDORFERI IGM IMMUNOBLOT Negative (Negative)
== END 2025-07-06 21:45 | disposition home or self-care (01) ==
LOC: JP.ED 16:17
DX: A69.20 Lyme disease, unspecified (principal); E86.0 Dehydration; Z79.82 Long term (current) use of aspirin
CPT/HCPCS: 36415; 71045; 80053; 81001; 83605; 85025; 86140; 86617; 86618; 87086; 87468; 87469; 87484; 87798; 96360; 96361; 99284; A9270; J7030; U0002

== ENCOUNTER 2025-08-02 17:17 | Emergency (ER) | payer MEDICARE ==
[2025-08-02 18:07] LABS: APPEARANCE,URINE CLEAR (CLEAR); GLUCOSE,URINE NEGATIVE (NEGATIVE); OCCULT BLOOD,URINE NEGATIVE (NEGATIVE)
[2025-08-02 18:32] LABS: BASOPHILS ABSOLUTE AUTO 0.10 K/uL (0.00-0.10); BASOPHILS PERCENT AUTO 0.6 % (0.1-1.3); EOSINOPHILS ABSOLUTE AUTO 0.05 K/uL (0.00-0.40); EOSINOPHILS PERCENT AUTO 0.3 % (0.0-5.4); IMMATURE GRAN ABSOLUTE AUTO 0.49 K/uL (0.00-0.23); IMMATURE GRAN PERCENT AUTO 2.9 % (0.0-0.7); LYMPHOCYTES ABSOLUTE AUTO 1.85 K/uL (0.8-3.3); LYMPHOCYTES PERCENT AUTO 10.8 % (11.4-47.7); MONOCYTES ABSOLUTE AUTO 1.18 K/uL (0.20-0.90); MONOCYTES PERCENT AUTO 6.9 % (3.3-12.6); NEUTROPHILS ABSOLUTE AUTO 13.47 K/uL (1.0-7.6); NEUTROPHILS PERCENT AUTO 78.5 % (40.0-78.1); PLATELET COUNT,PLT 69 K/uL (130-375); RED BLOOD CELL COUNT 2.05 M/uL (4.14-5.76); WHITE BLOOD CELL COUNT,WBC 17.1 K/uL (3.2-11.0)
[2025-08-02 18:44] LABS: A/G RATIO 0.6 (1.2-2.2); ALANINE AMINOTRANSFERASE,ALT 25 U/L (12-78); ASPARTATE AMNIOTRANSFERASE,AST 15 U/L (15-37); BILIRUBIN TOTAL 0.4 mg/dL (0.2-1.0); CARBON DIOXIDE,CO2 19 mmol/L (21-32); CHLORIDE,CL 102 mmol/L (100-108); CREATININE 2.1 mg/dL (0.8-1.3); EST CRCL DRUG DOSING (CG) 23.52 mL/min; ESTIMATED GFR 30 mL/min (>60); GLUCOSE RANDOM 248 mg/dL (74-106); POTASSIUM,K 5.0 mmol/L (3.6-5.2); PROTEIN TOTAL,TP 6.4 g/dL (6.4-8.2); SODIUM,NA 133 mmol/L (140-148); TROPONIN I HIGH SENSITIVITY 32.8 pg/mL (<=60.3)
[2025-08-02 18:49] LABS: BLOOD UREA NITROGEN,BUN 148 mg/dL (7-18)
[2025-08-02] MEDS: Sodium Chloride 0.9% 10 ML Syringe FLUSH ONE (21:03)
[2025-08-02] MEDS: Iopamidol 612 MG/ML 100 ML Bottle IV ONE (21:03)
[2025-08-02] MEDS: metroNIDAZOLE/Normal Saline 500 MG in Premix Bag 1 BAG IV ONE (21:55)
[2025-08-03 00:22] LABS: LACTIC ACID 2.4 mmol/L (0.4-2.0)
== END 2025-08-03 02:30 | disposition other institution (70) ==
LOC: JP.ED 17:17
DX: A41.9 Sepsis, unspecified organism (principal); R65.20 Severe sepsis without septic shock; E86.0 Dehydration; I10 Essential (primary) hypertension; Z79.899 Other long term (current) drug therapy
CPT/HCPCS: 36415; 36430; 71260; 74177; 76705; 80053; 81003; 83605; 84484; 85018; 85025; 86850; 86900; 86901; 86920; 86922; 87040; 93005; 96360; 96361; 96365; 96366; 96367; 96368; 99285; J0696; J1836; J3374; J7030; J7050; P9016; Q9967